=== PATIENT | female | born 1955 ===

== ENCOUNTER → 2019-04-26 | Outpatient (REF) ==
--- NOTE | 2019-04-26 12:41 | REP ---
Clinical: Pain and disability. Technique: AP, lateral, coned-down views of the lumbosacral spine. Findings: Age-related osteopenia and moderate multilevel degenerative changes include endplate sclerosis, disc space narrowing, and marginal osteophytosis along with mild hypertrophic facet changes. Findings most pronounced involving the L5-S1 and T11- L1 levels. No acute fracture / compression injury or subluxation. Impression: Osteopenia and moderate multilevel degenerative changes. If the patient remains symptomatic consider MRI for further investigation. Electronically Signed by Hung Dexter MD 04/26/2019 12:32 P
== END ==
LOC: M SMT 11:39
PROVIDERS: ATTEND Internal Medicine
DX: Z00.00 Encounter for general adult medical examination without abnormal findings (principal)